=== PATIENT | male | born 1970 | race Caucasian/White ===

== ENCOUNTER → 2016-09-06 | Outpatient (CLI) | payer BC ==
[~2016-09-06] MED LIST: ALBUAER2 INH; GADAVIST IV PRN; MESA1TAB4 PO; PROB1CAP PO; TINI500T PO; ZNTT/150 PO
--- NOTE | 2016-09-06 15:23 | DIAGNOSTIC IMAGING REPORT ---
PELVIS MRI HISTORY: K62.89 Rectal [id number] C. Difficile [id number] Anal in TECHNIQUE: Multiplanar multisequence MRI of the pelvis was performed both before and after the intravenous administration of contrast. COMPARISON STUDY: Abdomen and pelvis CT 04/19/2016. FINDINGS: There are postoperative changes consistent with a total colectomy and J-pouch formation. Mild to moderate thickening of the J-pouch persists. Hypoechoic foci at the posterior perirectal space is consistent with suture material. No extraluminal fluid collections to suggest an abscess within the pelvis. Presacral soft tissues are intact. Best seen on the axial T2 fat sat sequences image 22 of 30 there is a 6 mm T2 hyperintense focus within the anterior wall the anus. This may represent a tiny perianal cyst/abscess. There is no associated fistula. The bladder is unremarkable. Stable 5 mm left perirectal lymph node. No new or enlarged lymph nodes identified within the pelvis. Visualized osseous structures demonstrate normal signal intensity. IMPRESSION: 1. Postoperative changes consistent with total colectomy and J-pouch formation. There is persistent mild to moderate thickening of the J-pouch. 2. A 6 mm T2 hyperintense focus within the anterior wall of the anus. This may represent a small perianal cyst or abscess. There is no associated fistula. Electronically signed by: Ilia Machado M.D. 09/06/2016 3:21 PM Dictated Date/Time: 09/06/2016 3:15 PM
== END | disposition home or self-care (01) ==
LOC: C.MRI 13:41
PROVIDERS: ATTEND Registered Nurse
DX: A04.7 Enterocolitis due to Clostridium difficile (principal); K62.89 Other specified diseases of anus and rectum

== ENCOUNTER → 2017-04-04 | Outpatient (CLI) | payer BC ==
[~2017-04-04] MED LIST changes: -ALBUAER2 INH; -GADAVIST IV PRN; -MESA1TAB4 PO; -ZNTT/150 PO
[2017-04-04 17:51] LABS: BASO % 0.6 %; BASO ABS # 0.06 K/uL (0-0.2); COMPLETE YES; EOS % 4.4 %; HEMATOCRIT 44.4 % (42-52); IG% 0.3 %; LYMPH % 18.7 %; LYMPH ABS # 1.75 K/uL (1.2-3.4); MEAN CELL VOLUME 92.5 fL (80-100); MEAN CORPUSCULAR HGB CONC 33.6 g/dl (32-36); MEAN PLATELET VOLUME 10.4 fL (7.4-10.4); MONO % 6.6 %; NEUT % 69.4 %; PLATELET COUNT 323 K/uL (130-400); WHITE BLOOD COUNT 9.37 K/uL (4.8-10.8)
[2017-04-04 18:11] LABS: ALT/SGPT 33 U/L (12-78); AST/SGOT 18 U/L (15-37); BLOOD UREA NITROGEN 15 mg/dl (7-18); BUN/CREATININE RATIO 15.6 (10-20); C-REACTIVE PROTEIN < 0.29 mg/dl (0-0.29); CALCIUM 8.7 mg/dl (8.5-10.1); CARBON DIOXIDE 29 mmol/L (21-32); CHLORIDE 110 mmol/L (98-107); CREATININE 0.95 mg/dl (0.60-1.40); GLUCOSE 97 mg/dl (70-99); POTASSIUM 4.1 mmol/L (3.5-5.1); SODIUM 143 mmol/L (136-145)
[2017-04-04 18:13] LABS: ALB/GLOB RATIO 1.1 (0.9-2); ALKALINE PHOSPHATASE 82 U/L (45-117)
== END | disposition home or self-care (01) ==
LOC: C.LABBFT 09:56
PROVIDERS: ATTEND Registered Nurse
DX: K62.89 Other specified diseases of anus and rectum (principal)

== ENCOUNTER → 2017-04-16 | Outpatient (CLI) | payer BC ==
--- NOTE | 2017-04-16 09:39 | DIAGNOSTIC IMAGING REPORT ---
ULTRASOUND RIGHT UPPER QUADRANT ABDOMEN CLINICAL HISTORY: Liver lesion. COMPARISON STUDY: Abdominal ultrasound dated 05/01/2016. Abdominal CT dated 04/19/2016 and 09/14/2013. TECHNIQUE: Real-time, grayscale, and color flow sonography of the right upper quadrant of the abdomen was performed. Images are reviewed in the transverse and longitudinal planes. FINDINGS: Liver: The liver is normal in size and echotexture. There is no intrahepatic biliary ductal dilatation. The main portal vein is patent. There is unchanged appearance of 2 small well-circumscribed echogenic lesion in the right lobe of the liver as compared to prior studies. These measure 1.6 cm and 1.4 cm. When correlated with the CT findings from 04/19/2016 these are consistent with a benign hemangioma. Gallbladder: The gallbladder is normal in appearance. No gallstones are identified. There is no gallbladder wall thickening or pericholecystic fluid. A sonographic Mann's sign is reportedly absent. The common bile duct measures up to 0.5 cm in diameter. Pancreas: Visualized portions of the pancreatic head and body are normal in appearance. The splenic vein is patent. Right kidney: Survey images of the right kidney demonstrate normal size and echotexture. There is no hydronephrosis. A 10 mm cyst is incidentally noted in the interpolar region. A small nonobstructing right renal calculus is identified. Ascites: None. IMPRESSION: 1. No acute sonographic abnormality is identified in the right upper quadrant. 2. There are 2 echogenic lesions identified in the right lobe of the liver consistent with benign hemangiomas. Electronically signed by: Norman Mina M.D. 04/16/2017 9:38 AM Dictated Date/Time: 04/16/2017 9:32 AM
== END | disposition home or self-care (01) ==
LOC: C.ULTRBC 08:38
PROVIDERS: ATTEND Registered Nurse
DX: K76.9 Liver disease, unspecified (principal)

== ENCOUNTER → 2017-09-09 | Outpatient (CLI) | payer OTHER ==
[~2017-09-09] MED LIST changes: +GADAVIST IV PRN; +ZNTT/150 PO
--- NOTE | 2017-09-09 17:14 | DIAGNOSTIC IMAGING REPORT ---
MRI OF THE PELVIS WITH AND WITHOUT CONTRAST CLINICAL HISTORY: Buttock pain. Inflammation of internal ileoanal pouch. COMPARISON STUDY: MRI of the pelvis September 06, [address] of the abdomen and pelvis April 19, 2016. TECHNIQUE: Using a 1.5 Mackenzie magnet and dedicated coil, multiplanar, multiecho imaging of the pelvis was performed pre and postcontrast administration. Injection of 7 cc of Gadavist IV was uneventful. FINDINGS: Note is made of postsurgical findings consistent with a total colectomy with ileoanal pouch formation. Wall thickening of the pouch has improved since exam of September 06, 2016. No pelvic fluid collection is identified to suggest an abscess. Susceptibility artifact along the pouch is from surgical material. No perianal fistula is identified on this examination. There is no pelvic lymphadenopathy. No pelvic fluid collection is present. No suspicious marrow replacement is present. IMPRESSION: 1. No perianal fistula or abscess identified. 2. Status post total colectomy with ileoanal pouch formation. Interval improvement in pouch wall thickening since exam of September 06, 2016. Electronically signed by: Tim Whiteside M.D. 09/09/2017 5:13 PM Dictated Date/Time: 09/09/2017 4:06 PM
== END | disposition home or self-care (01) ==
LOC: C.MRI 14:30
PROVIDERS: ATTEND Registered Nurse
DX: K91.850 Pouchitis (principal); M79.1 Myalgia

== ENCOUNTER → 2017-09-23 | Day surgery (SDC) | payer OTHER ==
[2017-09-10 08:34] VITALS: Ht 167.6 cm; Wt 70.0 kg
[~2017-09-23] VITALS: Ht 167.6 cm; Wt 70.0 kg
[~2017-09-23] MED LIST changes: -GADAVIST IV PRN; +LIDOCAINE HCL 2% 2 ML VIAL (20MG/ML) ONE; +MIDAZOLAM HCL 1 MG/ML 2ML VIAL ONE; +ONDANSETRON INJ 2 MG/ML 2 ML VIAL ONE; +PROPOFOL IV EMULSION 10 MG/ML 20 ML VIAL IV ONE; +SODIUM CHLORIDE 0.9% 500ML 500 ML IV ONE
--- NOTE | 2017-09-23 10:19 | Endo History and Physical ---
History & Physical Date of Service: Sep 23, 2017. Chief Complaint: pouchitis Referring Physician: No PCP assigned History of Present Illness 46 yo CM who presents for Colonoscopy secondary to pouchitis. Past Medical History Gastrointestinal Disorder, Reflux, Kidney Disease Past Surgical History Hx Cardiac Surgery: No Hx Internal Defibrillator: No Hx Pacemaker: No Hx Abdominal Surgery: Yes (TOTAL COLECTOMY WITH J-POUCH, INGUINAL HERNIA) Hx of Implantable Prosthesis: No Hx Post-Op Nausea and Vomiting: No Hx Cancer Surgery: No Hx Thoracic Surgery: No Hx Orthopedic: No Hx Urinary Tract Surgery: Yes (KIDNEY STONES REMOVED) Family History None Social History Smoking Status: Former Smoker Hx Substance Use: No Hx Alcohol Use: No Allergies Coded Allergies: No Known Allergies (Verified , 09/10/17) Current Medications Reported Home Medications Medications Dose Route/Sig Max Daily Dose Days Date Category Zantac (Ranitidine HCl) 150 Mg Tab 150 Mg PO BID PRN 09/10/17 Reported Probiotic Complex/Acidoph (Probiotic Product) 1 Cap Cap 1 Cap PO QAM 11/05/16 Reported Tindamax (Tinidazole) 500 Mg Tab 1 Tab PO BID 30 11/05/16 Reported Vital Signs Weight (Kilograms): 70 Height (Feet): 5 Height (Inches): 6 Date Time Temp Pulse Resp B/P (MAP) Pulse Ox O2 Delivery O2 Flow Rate FiO2 09/23/17 10:13 37 72 16 143/88 (106) 99 Room Air Physical Exam General Appearance: WD/WN, no apparent distress Respiratory/Chest: Auscultation: breath sounds normal Cardiovascular: Heart Auscultation: RRR Abdomen: Bowel Sounds: normal Inspection & Palpation: soft, non-distended, no tenderness, guarding & rebound Assessment and Plan Assessment: 46 yo CM who presents for Colonoscopy secondary to pouchitis. Plan: Proceed with colonoscopy.
--- NOTE | 2017-09-23 11:09 | Discharge Instructions ---
Endoscopy Patient Instructions Date / Procedure(s) Performed Sep 23, 2017. Colonoscopy Allergy Information Coded Allergies: No Known Allergies (Verified , 09/10/17) Discharge Date / Findings Sep 23, 2017. Pouchitis s/p biopsies Medication Instructions OK to resume all medications today as prescribed Reported Home Medications Medications Dose Route/Sig Max Daily Dose Days Date Category Zantac (Ranitidine HCl) 150 Mg Tab 150 Mg PO BID PRN 09/10/17 Reported Probiotic Complex/Acidoph (Probiotic Product) 1 Cap Cap 1 Cap PO QAM 11/05/16 Reported Tindamax (Tinidazole) 500 Mg Tab 1 Tab PO BID 30 11/05/16 Reported Provider Instructions Activity Restrictions - No exercising or heavy lifting for 24 hours. - Do not drink alcohol the day of the procedure. - Do not drive a car or operate machinery until the day after the procedure. - Do not make any important decisions or sign important papers in 24 hours after the procedure. Following Day: - Return to full activity which may include returning to work/school. Diet Start your diet with liquids and light foods (jello, soup, juice, toast). Then eat your usual diet if not nauseated. Treatment For Common After Affects For mild abdominal pain, bloating, or excessive gas: - Rest - Eat lightly - Lie on right side Follow-Up Information Follow-up with No PCP assigned as scheduled Anesthesia Information What You Should Know You have had a procedure that required some medicine to reduce anxiety and discomfort. This treatment is called moderate sedation. After receiving the treatment, you may be sleepy, but you will be able to breathe on your own. The effects of the treatment may last for several hours. Follow these instructions along with Activity/Diet recommendations noted above: * Do NOT do anything where dizziness or clumsiness would be dangerous. * Rest quietly at home today, then you can be up and about tomorrow. * Have a responsible person stay with you the rest of today. * You may have had an I.V. today. If so, you may take the dressing off later today. Recommendations Call your doctor if: * Trouble breathing * Continuous vomiting for more than 24 hours * Temperature above 101 degrees * Severe abdominal pain or bloating * Pain not relieved by pain medicine ordered * There is increased drainage or redness from any incision * A large amount of rectal bleeding greater than 2-3 tablespoons. (If you had a polyp/s removed or have hemorrhoids, a small amount of blood - from the rectum is to be expected.) * You have any unanswered questions or concerns. IN THE EVENT OF A SERIOUS EMERGENCY, GO TO THE NEAREST EMERGENCY ROOM Your discharge instructions were prepared by provider Elie Sparks. Patient Instructions Signature Page Pedro Loyola Patient (or Guardian) Signature/Date: I have read and understand the instructions given to me by my caregivers. Caregiver/RN/Doctor Signature/Date: The above-named patient and/or guardian has received patient instructions on this date. + Original Patient Signature Page (only) stays with chart. Please make copy for patient.
--- NOTE | 2017-09-23 11:39 | Anesthesiology Progress Note ---
Anesthesia Post Op Note Date & Time Sep 23, 2017 at 11:38 Vital Signs Pain Intensity: 0 Vital Signs Past 12 Hours Date Time Temp Pulse Resp B/P (MAP) Pulse Ox O2 Delivery O2 Flow Rate FiO2 09/23/17 11:29 70 20 112/83 (93) 99 Room Air 09/23/17 11:14 75 16 118/75 (89) 96 Room Air 09/23/17 10:13 37 72 16 143/88 (106) 99 Room Air Notes Mental Status: alert / awake / arousable, participated in evaluation Pt Amnestic to Procedure: Yes Nausea / Vomiting: adequately controlled Pain: adequately controlled Airway Patency, RR, SpO2: stable & adequate BP & HR: stable & adequate Hydration State: stable & adequate Anesthetic Complications: no major complications apparent
--- NOTE | 2017-09-23 11:39 | GI REPORT ---
Procedure Date: 09/23/2017 10:54 AM Procedure: Colonoscopy Indications: Pouchitis Medicines: Monitored Anesthesia Care Complications: No immediate complications. Estimated Blood Loss: Estimated blood loss: none. Procedure: Pre-Anesthesia Assessment: - Prior to the procedure, a History and Physical was performed, and patient medications and allergies were reviewed. The patient's tolerance of previous anesthesia was also reviewed. The risks and benefits of the procedure and the sedation options and risks were discussed with the patient. All questions were answered, and informed consent was obtained. Prior Anticoagulants: The patient has taken no previous anticoagulant or antiplatelet agents. ASA Grade Assessment: II - A patient with mild systemic disease. After reviewing the risks and benefits, the patient was deemed in satisfactory condition to undergo the procedure. After I obtained informed consent, the scope was passed under direct vision. Throughout the procedure, the patient's blood pressure, pulse, and oxygen saturations were monitored continuously. The Scope was introduced through the anus and advanced to the terminal ileum. The colonoscopy was performed without difficulty. The patient tolerated the procedure well. The quality of the bowel preparation was good. The terminal ileum was photographed. Findings: Localized inflammation, moderate in severity and characterized by aphthous ulcerations was found in the ileoanal pouch. Biopsies were taken with a cold forceps for histology. Impression: - Ileitis. Biopsied. Recommendation: - Resume previous diet. - Continue present medications. - Await pathology results. - Return to referring physician as previously scheduled. Elie Sparks DO 09/23/2017 11:38:42 AM This report has been signed electronically. Note Initiated On: 09/23/2017 10:54 AM I attest to the content of the Intraoperative Record and orders documented therein, exceptions below
[2017-09-23 11:41] VITALS: BP 132/89; PULSE 71; O2SAT 98
== END | disposition home or self-care (01) ==
LOC: C.GI 09:55
PROVIDERS: ATTEND Internal Medicine
DX: K91.850 Pouchitis (principal); K52.9 Noninfective gastroenteritis and colitis, unspecified; K21.9 Gastro-esophageal reflux disease without esophagitis; N28.9 Disorder of kidney and ureter, unspecified; Z87.891 Personal history of nicotine dependence

== ENCOUNTER → 2018-04-11 | Outpatient (CLI) | payer OTHER ==
[~2018-04-11] MED LIST changes: -LIDOCAINE HCL 2% 2 ML VIAL (20MG/ML) ONE; -MIDAZOLAM HCL 1 MG/ML 2ML VIAL ONE; -ONDANSETRON INJ 2 MG/ML 2 ML VIAL ONE; -PROPOFOL IV EMULSION 10 MG/ML 20 ML VIAL IV ONE; +RANI150T85 PO; -SODIUM CHLORIDE 0.9% 500ML 500 ML IV ONE; -ZNTT/150 PO
== END | disposition home or self-care (01) ==
LOC: C.LABBFT 13:41
PROVIDERS: ATTEND Physician Assistant
DX: R19.7 Diarrhea, unspecified (principal); R10.9 Unspecified abdominal pain